=== PATIENT | male | born 1985 | race African-American/Black ===

== ENCOUNTER 2019-04-23 10:04 | Emergency (ER) | payer SELFPAY ==
[2019-04-23] MEDS: FLUORESCEIN STRIP RIGHT EYE (10:36)
[2019-04-23] MEDS: TETRACAINE 0.5% 4 ML OPH RIGHT EYE (10:36)
== END 2019-04-23 11:16 | disposition home or self-care (01) ==
LOC: FTE 11:16
DX: S05.01XA Injury of conjunctiva and corneal abrasion without foreign body, right eye, initial encounter (principal); X58.XXXA Exposure to other specified factors, initial encounter; Y92.9 Unspecified place or not applicable
CPT/HCPCS: 99283